=== PATIENT | male | born 1965 | race Caucasian/White ===

== ENCOUNTER 2023-06-09 11:54 | Emergency (ER) | payer BC ==
[2023-06-09] MEDS ORDERED: IBUPROFEN 600 MG TABLET PO STA (14:11)
[2023-06-09] MEDS ORDERED: HYDROmorphone 1 MG/ML CARPUJECT IVP STA (14:11)
[2023-06-09] MEDS ORDERED: HYDROmorphone 1 MG/ML CARPUJECT IM STA (14:15)
--- NOTE | 2023-06-09 14:17 | ED Physician Documentation ---
History of Present Illness - Stated complaint Stated Complaint: RT LEG PX,SWELLING - Chief complaint Chief Complaint: Ext Problem - Additonal information Additional information: 58-year-old male presents to the emergency department for evaluation of right leg pain and swelling. He has had the pain now for more than a week. Pain radiates from his right hip down the leg. He is visiting the [place] and [place] from [place]. He and his are seemingly living full-time in their fifth wheel. Patient did go to a chiropractor for evaluation of the pain and they were subsequently sent to a walk-in clinic who advised ED evaluation to rule out DVT. Patient has past medical history most significant for hypertension, hyperlipidemia and previous coronary artery disease status post stenting. Meds: Losartan, statin, Plavix, daily aspirin. Family has tried Tylenol without relief of symptoms. No fevers, no falls, no trauma. Review of Systems Constitutional: denies: Fever Nose: reports: Reviewed and negative Throat: reports: Reviewed and negative Cardiac: reports: Reviewed and negative Respiratory: reports: Reviewed and negative Musculoskeletal: reports: Joint pain. denies: Neck pain, Back pain Neurologic: reports: Reviewed and negative PD PAST MEDICAL HISTORY - Past Medical History Past Medical History: Yes Cardiovascular: Hypertension, High cholesterol, [place] - Past Surgical History Past Surgical History: Yes Cardiovascular: Coronary stent - Present Medications Home Medications: Ambulatory Orders Medication Instructions Recorded Confirmed Clopidogrel [Plavix] 75 mg PO ONCE 06/09/23 06/09/23 HYDROcod/ACETAM 5/325 [Lithia 5/325] 1 tablet PO BID PRN #15 tablet 06/09/23 Losartan [Cozaar] 50 mg PO DAILY 06/09/23 06/09/23 Rosuvastatin Calcium [Crestor] 40 mg PO DAILY 06/09/23 06/09/23 - Allergies Allergies/Adverse Reactions: Allergies Allergy/AdvReac Type Severity Reaction Status Date / Time No Known Drug Allergies Allergy Verified 06/09/23 12:30 - Social History Does the pt smoke?: No Smoking Status: Never smoker PD ED PE NORMAL - General General: Alert and oriented X 3. No: No acute distress (Appears uncomfortable and in pain) - HEENT HEENT: Atraumatic - Neck Neck: Supple, no meningeal sign - Cardiac Cardiac: RRR, No murmur - Respiratory Respiratory: No respiratory distress, Clear bilaterally - Abdomen Abdomen: Normal bowel sounds, Soft - Extremities Extremities: Other (Very scant right lower extremity edema. There is no focal tenderness behind the calf. No erythema. Patient reports that the pain radiates from his right lateral hip down the leg.) Results - Vitals Vitals: Vital Signs - 24 hr 06/09/23 12:28 Temperature 36.6 C Heart Rate 71 Respiratory 20 Rate Blood Pressure 191/102 H O2 Saturation 99 Departure - Departure Disposition: 01 Home, Self Care Clinical Impression: Right leg pain Condition: Stable Record reviewed to determine appropriate education?: Yes Instructions: ED Sciatica Prescriptions: HYDROcod/ACETAM 5/325 [Lithia 5/325] 1 tablet PO BID PRN #15 tablet PRN Reason: Pain Comments: As discussed at the bedside the ultrasound of your right leg today does not show evidence of a DVT. However your history suggest that you have sciatica. This is a painful condition in which the large nerve that exits the from the lower spine can become inflamed causing pain down the entire leg. I am we did give you a single dose of Decadron today in the emergency department which should help with pain and inflammation over the next 48 to 72 hours. In general you can take 500 mg of Tylenol 2-3 times a day or alternate with 600 mg of ibuprofen taken with food also 2-3 times a day. Please try to avoid use of ibuprofen in this manner for more than 2 weeks duration as it can cause some stomach gastric upset as well as have longer-term risk for cardiovascular disease and kidney issues. For the more severe pain I have written a limited amount of Lithia and sent it to the [facility] in [place]. I recommend that you google sciatica stretching exercises. If you find that the treatment today is not making her pain better you may benefit from referral to physical therapy or consideration of referral to an orthopedist or back pain specialist. This is something that would need to be done however through your primary care doctor. Return to any emergency department if you develop numbness in your genital area, lose control of your bowel or bladder function.
--- NOTE | 2023-06-09 14:20 | Ultrasound Report ---
PROCEDURE: Duplex Ext Veins Right INDICATIONS: RLE swelling TECHNIQUE: Real-time imaging, as well as color and pulse Doppler interrogation, were performed of the lower extr emity deep veins from the inguinal ligament to the popliteal fossa. Attempted visualization of the ca lf veins was performed. COMPARISON: None. FINDINGS: The deep veins are normally compressible, and free of intraluminal thrombus. Color and pu lse Doppler demonstrate normal phasic intraluminal flow. There is normal augmentation response to di stal compression maneuver. IMPRESSION: No deep venous thrombosis of the visualized lower extremity. Reviewed by: Bart Leon on 06/09/2023 2:19 PM PDT Approved by: Bart Leon on 06/09/2023 2:19 PM PDT Station ID: [id number]
[2023-06-09] MEDS ORDERED: DEXAMETHASONE 10 MG/ML VIAL PO STA (14:36)
[2023-06-09] MEDS ORDERED: CHERRY SYRUP 10 ML UDC PO ONE (14:36)
--- NOTE | 2023-06-09 14:49 | XRAY Report ---
PROCEDURE: Hip w/Pelvis 2-3V RT INDICATIONS: right hip pain radiating down leg TECHNIQUE: 2 view(s) of the hip were acquired. COMPARISON: None FINDINGS: Bones: No fractures or dislocations. No suspicious bony lesions. The visualized pelvic ring appear s intact. Mild degenerative change is noted in the lower lumbar spine. Mild right hip joint space gemma rowing with marginal ossified present as well. No evidence of fracture. Soft tissues: No suspicious soft tissue calcifications or masses. IMPRESSION: Mild right hip arthritic changes without fracture Reviewed by: Cornelius Loco MD on 06/09/2023 1:48 PM AKDT Approved by: Cornelius Loco MD on 06/09/2023 1:48 PM AKDT Station ID: [id number]
[2023-06-09 15:22] VITALS: BP 167/74; O2SAT 98
== END 2023-06-09 15:13 | disposition home or self-care (01) ==
LOC: ED 11:54
DX: M79.604 Pain in right leg (principal)
CPT/HCPCS: 73502; 93971; 96372; 99283; 99284; A9270; J1170